=== PATIENT | male | born 1990 ===

== ENCOUNTER 2022-02-03 17:23 | Outpatient (CLI) | payer OTHER, SELFPAY ==
--- NOTE | ~2022-02-03 | XR_ITS ---
EXAMINATION: XR knee LT min 4V DATE: 02/03/2022 17:50 INDICATION: Localized swelling, mass and lump, left lower limb. TECHNIQUE: 4 views of left knee including standing views were obtained. COMPARISON: None. FINDINGS: Bone alignment is normal. No fracture. There is mild tricompartmental osteoarthritis charac terized by tiny osteophytes. No joint space narrowing. No knee joint effusion. IMPRESSION: 1. Mild left knee osteoarthritis. Reviewed, dictated and finalized at location A.
== END 2022-02-03 17:24 | disposition home or self-care (01) ==
LOC: ANHIMG 17:26
PROVIDERS: PCP Family Medicine; Visit Provider Family Medicine
DX: M17.12 Unilateral primary osteoarthritis, left knee (principal)
CPT/HCPCS: 73564